=== PATIENT | male | born 1960 | race Caucasian/White ===

== ENCOUNTER 2017-05-07 09:20 | Day surgery (SDC) | payer MEDICAID ==
[2017-05-07] MEDS ORDERED: Lactated Ringer's 500 ML IV ONE (09:42)
[2017-05-07 10:00] VITALS: TEMP 96.8
[2017-05-07] MEDS ORDERED: Propofol 10 mg/ml Inj (20 ML) ONE (11:13)
[2017-05-07] MEDS ORDERED: Lidocaine 2% MPF (5 ml) Inj ONE (11:15)
[2017-05-07 11:57] VITALS: BP 120/77; PULSE 68; RESP 18; O2SAT 98
== END 2017-05-07 12:50 | disposition home or self-care (01) ==
LOC: H.ENDO 09:20
PROVIDERS: ATTEND Internal Medicine Gastroenterology
DX: Z86.010 Personal history of colon polyps (principal)
CPT/HCPCS: 45384; 88305; J2704; J7120